=== PATIENT | male | born 1985 | race African-American/Black ===

== ENCOUNTER 2018-07-14 15:26 | Emergency (ER) | payer SELFPAY ==
[~2018-07-14] VITALS: Ht 188 cm; Wt 68.0 kg
[2018-07-14 19:03] VITALS: BP 140/62
[2018-07-14] MEDS ORDERED: ACETAMINOPHEN 500 MG TAB PO ONE (19:45)
[2018-07-14] MEDS ORDERED: IBUPROFEN 800 MG TAB PO ONE (19:45)
== END 2018-07-14 20:47 | disposition home or self-care (01) ==
LOC: ER 15:40
DX: S42.435A Nondisplaced fracture (avulsion) of lateral epicondyle of left humerus, initial encounter for closed fracture (principal); Y08.89XA Assault by other specified means, initial encounter; Y93.89 Activity, other specified; Y99.8 Other external cause status; Y92.89 Other specified places as the place of occurrence of the external cause
CPT/HCPCS: 29105; 73080; 73090